=== PATIENT | female | born 1975 | race Caucasian/White ===

== ENCOUNTER 2019-02-10 15:39 | Emergency (ER) | payer SELFPAY ==
--- NOTE | 2019-02-10 19:15 | RAD ---
EXAM: Chest PA and lateral: HISTORY: Dyspnea. COMPARISON: None FINDINGS: Heart: Normal cardiac silhouette Aorta: Unremarkable Pulmonary vessels: Normal Costophrenic angles: Costophrenic angles are clear. Lungs: No consolidation or masses. Pneumothorax: No pneumothorax Osseous structures: No osseous abnormalities IMPRESSION: No acute cardiopulmonary process.
== END 2019-02-10 18:17 | disposition home or self-care (01) ==
LOC: ERS 15:39
DX: R05 Cough (principal); R06.00 Dyspnea, unspecified; F17.210 Nicotine dependence, cigarettes, uncomplicated
CPT/HCPCS: 71046; 93005

== ENCOUNTER → 2019-07-17 | Day surgery (SDC) | payer SELFPAY ==
[~2019-07-17] MED LIST: Cyclobenzaprine 10 MG TAB ONE; Dexamethasone 20 MG/5 ML VIAL ONE; EPHEDRINE 25 MG/5 ML SYRINGE ONE; Fentanyl 100 MCG/2 ML VIAL ONE; Glycopyrrolate 0.2 MG/ML 5 ML SYRINGE ONE; Ketorolac Tromethamine 30 MG/ML VIAL ONE; Lidocaine 1% PF 5 ML VIAL ONE; Lidocaine 2% Jelly 5 ML TUBE ONE; Midazolam HCl 2 mg/2 ml Vial ONE; Morphine 4 MG/ML VIAL ONE; Ondansetron HCl/PF 4 MG/2 ML Vial IVP PRN; Ondansetron PF 4 MG/2 ML Vial ONE; PHENYLEPHRINE-NS 100 MCG/ML 10 ML SYRINGE ONE; PROPOFOL 200 MG/20 ML VIAL ONE; Promethazine HCl 25 MG/ML VIAL IM PRN; Promethazine HCl 25 MG/ML VIAL SLOW IVP PRN; Rocuronium Bromide 10 MG/ML (10ML VIAL) ONE; Succinylcholine Chloride 20 MG/ML 10 ml SYRINGE FS ONE; Thrombin 5000 UNITS/5 ML VIAL ONE
[2019-07-17 10:42] LABS: Hemoglobin 15.5 g/dL (12.0-16.0); Mean Corpuscular HGB CONC 34.1 g/dL (32.0-36.0); Mean Corpuscular Hemoglobin 34.7 pg (27.0-31.0); Platelet Count 449 thou/uL (130-400); RBC Distribution Width 11.9 % (11.5-14.5); Red Blood Cell (RBC) Count 4.46 mill/uL (4.20-5.40); White Blood Cell (WBC) Count 17.3 thou/uL (4.8-10.8)
--- NOTE | 2019-07-17 12:01 | OP ---
DATE OF PROCEDURE: 07/17/2019 PURCHASE REQUEST EDITOR: Jomar Pike PA-C INDICATION: Pain. DIAGNOSIS: Cervical radiculopathy. PROCEDURE PERFORMED: Anterior cervical diskectomy and fusion, C6-C7. ANESTHESIA: General. DESCRIPTION OF PROCEDURE: The patient was brought into the operating room and placed under general anesthesia. She was placed on table in a supine position. A transverse incision was planned over the lateral aspect of the neck on the right. After prepping and draping and after an appropriate preoperative pause, the incision was created. The underlying platysma muscle was identified and incised. A blunt tissue plane anterior to the sternocleidomastoid muscle was used to gain access to the prevertebral space. Self-retaining retractors were placed in the wound for optimal exposure. After confirming the appropriate level with C-arm fluoroscopy, an annulotomy was performed in the C6-C7 disk space. All disk material as well as anterior and posterior osteophytes were removed. After completing the decompression, an 8-mm lordotic PEEK cage packed with allograft and autograft material was placed in the interbody space. An anterior cervical plate was then fashioned to the front of spine and secured with a total of 4 fixed screws. Midline and lateral structures were then inspected and found to be free of significant trauma. The wound was irrigated. Hemostasis was maintained throughout. The wound was then closed in anatomic layers and a pressure dressing was applied. There were no known procedural complications. Job ID: [id number]
== END ==
LOC: ERS 08:17 → SDC 10:09
PROVIDERS: ATTEND Neurological Surgery
PROC: 0RG10A0 Fusion of Cervical Vertebral Joint with Interbody Fusion Device, Anterior Approach, Anterior Column, Open Approach (ICD-10-PCS; principal; 2019-07-17)
PROC: 0RT30ZZ Resection of Cervical Vertebral Disc, Open Approach (ICD-10-PCS; principal; 2019-07-17)
DX: M50.122 Cervical disc disorder at C5-C6 level with radiculopathy (principal); F17.210 Nicotine dependence, cigarettes, uncomplicated; Z91.018 Allergy to other foods
CPT/HCPCS: 76000; 85027; 93005; C1713; C1776; J0690; J1885; J2250; J2270; J3010

== ENCOUNTER 2020-02-16 17:20 | Emergency (ER) | payer SELFPAY ==
[~2020-02-16 17:20] MED LIST changes: -Cyclobenzaprine 10 MG TAB ONE; -Dexamethasone 20 MG/5 ML VIAL ONE; -EPHEDRINE 25 MG/5 ML SYRINGE ONE; -Fentanyl 100 MCG/2 ML VIAL ONE; -Glycopyrrolate 0.2 MG/ML 5 ML SYRINGE ONE; -Ketorolac Tromethamine 30 MG/ML VIAL ONE; -Lidocaine 1% PF 5 ML VIAL ONE; -Lidocaine 2% Jelly 5 ML TUBE ONE; +Magnevist 469MG/ML 20 ML VIAL ONE; -Midazolam HCl 2 mg/2 ml Vial ONE; -Morphine 4 MG/ML VIAL ONE; -Ondansetron HCl/PF 4 MG/2 ML Vial IVP PRN; -Ondansetron PF 4 MG/2 ML Vial ONE; -PHENYLEPHRINE-NS 100 MCG/ML 10 ML SYRINGE ONE; -PROPOFOL 200 MG/20 ML VIAL ONE; -Promethazine HCl 25 MG/ML VIAL IM PRN; -Promethazine HCl 25 MG/ML VIAL SLOW IVP PRN; -Rocuronium Bromide 10 MG/ML (10ML VIAL) ONE; -Succinylcholine Chloride 20 MG/ML 10 ml SYRINGE FS ONE; -Thrombin 5000 UNITS/5 ML VIAL ONE
[2020-02-16] MEDS ORDERED: Dexamethasone 4 mg/ml Vial ONE (17:50)
[2020-02-16] MEDS ORDERED: Morphine 4 MG/ML VIAL ONE (17:50)
[2020-02-16] MEDS ORDERED: Ondansetron ODT 4 MG TAB ONE (17:50)
[2020-02-16] MEDS ORDERED: Diazepam 5 MG TAB ONE (19:20)
--- NOTE | 2020-02-16 22:06 | MRI ---
MRI OF THE CERVICAL SPINE WITH AND WITHOUT CONTRAST: 02/16/20 COMPARISON: None. HISTORY: Left arm pain and weakness, prior cervical spine surgery. TECHNIQUE: Multiplanar and multisequence MR imaging of the cervical spine obtained with and without contrast. FINDINGS: The sagittal STIR imaging demonstrates no focal area of osseous marrow edema. Anterior discectomy and fusion hardware is present at the C6-7 level. There is no significant viri listhesis or retrolisthesis noted within the cervical spine. C2-3: There is mild neural foraminal stenosis on the left secondary to facet hypertrophy. No central canal or right neural foraminal stenosis. C3-4: No central canal or neural foraminal stenosis. C4-5: There is disc space narrowing with disc desiccation and mild disc bulge partially effacing the ventral thecal sac with no significant central canal stenosis. There is mild right neural foraminal stenosis on the basis of facet hypertrophy. No significant left neural foraminal stenosis. C5-6: No significant central canal and neural foraminal stenosis. C6-7: Artifact from hardware slightly limits assessment. No significant central canal or neural isrrael inal stenosis. C7-T1: There is disc desiccation and mild disc bulge with partial effacement of the ventral thecal sa c. No significant central canal or neural foraminal stenosis. There is no focal area of abnormal signal intensity identified within the cervical cord. The postcont rast imaging demonstrates no abnormal enhancement involving the contents of the thecal sac, the imag ed osseous structures, or the intervertebral discs. IMPRESSION: Cervical spine postoperative and degenerative change as described above. POS: [facility]
== END 2020-02-16 23:07 | disposition home or self-care (01) ==
LOC: ERS 17:20
DX: M25.512 Pain in left shoulder (principal); M54.12 Radiculopathy, cervical region; F17.210 Nicotine dependence, cigarettes, uncomplicated; M50.20 Other cervical disc displacement, unspecified cervical region
CPT/HCPCS: 72156; 96372; A9579; J1100; J2270; Q0162